=== PATIENT | male | born 1965 | race African-American/Black ===

== ENCOUNTER 2021-11-08 19:22 | Emergency (ER) | payer MEDICARE, OTHER ==
[~2021-11-08] VITALS: Ht 167.6 cm; Wt 68.0 kg
--- NOTE | 2021-11-08 19:40 | NUR ---
[id number] C/O CHEST PAIN X 30 MIN GIVEN ASPIRIN AND NITRO PRIOR TO ARRIVAL. PT AWAKE AND ALERT X4 BREATHING EVEN AND UNLABORED.CHANGED INTO GOWN AND PLACED ON MONUITOR ALL V/S WNL.
--- NOTE | 2021-11-08 19:46 | NUR ---
20G IV LINE ESTABLISHED AT . BLOOD DRAWN AND SENT TO LAB.
[2021-11-08 20:05] LABS: BASOPHILS % (AUTO) 0.3 % (0.0-2.0); EOSINOPHILS % (AUTO) 3.5 % (0.0-6.0); HEMATOCRIT 35 % (39-51); HEMOGLOBIN 11.6 g/dL (13.5-17.5); LYMPHOCYTES # (AUTO) 2.2 K/uL (0.8-4.8); LYMPHOCYTES % (AUTO) 35.3 % (20.0-44.0); MEAN CORPUSCULAR HGB CONC 33 g/dl (31.0-36.0); MEAN CORPUSCULAR VOLUME 92 fL (80-96); MONOCYTES # (AUTO) 0.6 K/uL (0.1-1.30); MONOCYTES % (AUTO) 8.9 % (2.0-12.0); NEUTROPHILS # (AUTO) 3.3 K/uL (1.8-8.9); PLATELET COUNT (AUTO) 177 K/uL (150-450); RED BLOOD CELL COUNT(AUTO) 3.77 MIL/uL (4.5-6.0); WHITE BLOOD COUNT (AUTO) 6.3 K/uL (4.3-11.0)
[2021-11-08 20:29] LABS: CALCIUM, SERUM 8.8 mg/dL (8.5-10.1); CARBON DIOXIDE 30 mmol/L (21-32); CHLORIDE 103 mmol/L (98-107); CREATININE 0.9 mg/dL (0.6-1.3); GLUCOSE 115 mg/dL (74-106); POTASSIUM 4.2 mmol/L (3.5-5.1); SODIUM SERUM 138 mmol/L (136-145); UREA NITROGEN, BLOOD 11 mg/dL (7-18)
--- NOTE | 2021-11-09 01:10 | NUR ---
[facility] ETA : 60MIN TO [facility]
--- NOTE | 2021-11-09 01:37 | NUR ---
PATIENT REFUSES TO GO TO [facility] AND WISHES TO BE DISCHARGED. DENIES ANY DISCOMFORT AND DENIES CP.
[2021-11-09 01:38] VITALS: BP 131/77
--- NOTE | 2021-11-09 01:38 | NUR ---
Patient discharged to home in stable condition. Written and verbal after care instructions given. Patient verbalizes understanding of instruction.
== END 2021-11-09 01:39 | disposition home or self-care (01) ==
LOC: ER 19:24
DX: R07.9 Chest pain, unspecified (principal); Z20.822 Contact with and (suspected) exposure to COVID-19; Z86.59 Personal history of other mental and behavioral disorders
CPT/HCPCS: 36415; 71045-TC; 80048-TC; 83880; 84484-TC; 85025-TC; C9803